=== PATIENT | female | born 1955 | race Two or more races ===

== ENCOUNTER 2019-08-19 16:41 | Emergency (ER) | payer OTHER ==
[~2019-08-19] VITALS: Ht 154.9 cm; Wt 56.2 kg
--- NOTE | 2019-08-19 17:03 | NUR ---
ED Nurse Note: Pt walked into ED for c/o uterine pain for 1 day. Pt has history of diabetes. Pt also has pain chronic in L arm 10/20. VSS.
[2019-08-19 17:07] VITALS: BP 132/60
[2019-08-19 17:25] LABS: APPEARANCE,URINE CLEAR; BILIRUBIN, URINE NEGATIVE (NEGATIVE); COLOR,URINE PALE YELLOW; GLUCOSE, URINE (UA) 4+ (NEGATIVE); KETONES,URINE NEGATIVE (NEGATIVE); LEUKOCYTE ESTERASE ,URINE NEGATIVE (NEGATIVE); NITRITE,URINE NEGATIVE (NEGATIVE); PH,URINE 7 (4.5-8.0); PROTEIN,URINE NEGATIVE (NEGATIVE); UROBILINOGEN,URINE NORMAL MG/DL (0.0-1.0)
[2019-08-19] MEDS ORDERED: Omnipaque-300 100ml vial INJ PRN (17:30)
[2019-08-19] MEDS ORDERED: traMADol 50mg tab ORAL ONE (17:30)
[2019-08-19 18:01] LABS: BASOPHILS % (AUTO) 0.5 % (0.0-2.0); EOSINOPHILS % (AUTO) 0.8 % (0.0-3.0); HEMATOCRIT 42.9 % (37.0-47.0); HEMOGLOBIN 13.2 G/DL (12.0-16.0); LYMPHOCYTES % (AUTO) 23.8 % (20.0-45.0); MEAN CORPUSCULAR VOLUME 91 FL (80-99); MONOCYTES % (AUTO) 6.9 % (1.0-10.0); NEUTROPHILS % (AUTO) 68.1 % (45.0-75.0); PLATELET COUNT 252 K/UL (150-450); RED BLOOD COUNT 4.71 M/UL (4.20-5.40); RED CELL DISTRIBUTION WIDTH 12.7 % (11.6-14.8)
[2019-08-19 18:07] LABS: INR 0.9 (0.9-1.1)
[2019-08-19 18:15] LABS: ANION GAP 13 mmol/L (5-15); BLOOD UREA NITROGEN 15 mg/dL (7-18); CALCIUM 10.2 MG/DL (8.5-10.1); CARBON DIOXIDE 27 MMOL/L (21-32); CHLORIDE 102 MMOL/L (98-107); CREATININE 0.9 MG/DL (0.55-1.30); POTASSIUM 3.7 MMOL/L (3.5-5.1); SODIUM 142 MMOL/L (136-145)
[2019-08-19 18:19] LABS: ALANINE AMINOTRANSFERASE 30 U/L (12-78); ALBUMIN 4.3 G/DL (3.4-5.0); ALKALINE PHOSPHATASE 97 U/L (46-116); ASPARTATE AMINO TRANSFERASE 14 U/L (15-37); BILIRUBIN,TOTAL 0.4 MG/DL (0.2-1.0)
--- NOTE | 2019-08-19 18:31 | NUR ---
ED Nurse Note: Pt taken to CT.
--- NOTE | 2019-08-19 18:41 | Emergency Room Report ---
History of Present Illness General Chief Complaint: Female Urogenital Problems Source: Patient (Helder Amezcua) Present Illness HPI 64-year-old female with history of type 2 diabetes and insulin-dependent here complaining of sudden onset bilateral lower abdominal pain rating it a 10 out of 10 without radiation. Denies any nausea vomiting, vaginal bleeding or spotting. Denies any urinary frequency and urgency. Reports that a few days ago she had diarrhea which was nonbloody however diarrhea has stopped. Denies fever and chills, cough and congestion, shortness of breath, loss of taste and smell. Has not taken medication for symptom relief. Guarding noted when palpating bilateral lower abdominal quadrants. Reports her last colonoscopy was 10 years ago and within normal limits. Reports her last menstruation was 13 years ago. Patient also complains of chronic left shoulder pain which reports that her primary doctor used to write for Motrin for arthritis and possible tendon injury with pending referral to specialist however due to the recent pandemic has not been able to see primary doctor. Denies tingling numbness in the left shoulder. Denies any chest pain chest pain radiation to the shoulder. 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: No (Helder Amezcua) Patient History Past Medical History: see triage record Past Surgical History: none Pertinent Family History: none Last Menstrual Period: 20 years ago Now: No Immunizations: UTD Reviewed Nursing Documentation: PMH: Agreed; PSxH: Agreed (Helder Amezcua) Nursing Documentation-PMH Past Medical History: No History, Except For Hx Diabetes: Yes (Helder Amezcua) Review of Systems All Other Systems: negative except mentioned in HPI (Helder Amezcua) Physical Exam Vital Signs Date Time Temp Pulse Resp B/P (MAP) Pulse Ox O2 Delivery O2 Flow Rate FiO2 08/19/19 16:53 98.8 97 16 134/62 (86) 97 Room Air Sp02 EP Interpretation: reviewed, normal General Appearance: no apparent distress, alert, GCS 15, non-toxic Head: normocephalic, atraumatic Eyes: bilateral eye normal inspection, bilateral eye PERRL ENT: hearing grossly normal, normal pharynx, no angioedema, normal voice Neck: full range of motion, supple/symm/no masses Respiratory: chest non-tender, lungs clear, normal breath sounds, no rhonchi, no respiratory distress, no retraction, speaking full sentences Cardiovascular #1: regular rate, rhythm, no edema, no murmur Cardiovascular #2: 2+ carotid (R), 2+ carotid (L), 2+ radial (R), 2+ radial (L) Gastrointestinal: normal bowel sounds, non tender, soft, non-distended, no guarding, no rebound Rectal: deferred Genitourinary: no CVA tenderness Musculoskeletal: back normal, digits/nails normal, no calf tenderness, other - Pain with range of motion left shoulder especially with extension, possible impingement sign Neurologic: alert, motor strength/tone normal, oriented x3, sensory intact, responsive, speech normal Psychiatric: judgement/insight normal, memory normal, mood/affect normal, no suicidal/homicidal ideation Skin: no rash Lymphatic: no adenopathy (Helder Amezcua) Medical Decision Making PA Attestation All my diagnosis and treatment plans were reviewed ad discussed with my supervising physician Dr. Carrizales (Helder Amezcua) Diagnostic Impression: Primary Impression: Abdominal pain Additional Impressions: Chronic shoulder pain Diverticulitis ER Course 64-year-old female with history of type 2 diabetes and insulin-dependent here complaining of sudden onset bilateral lower abdominal pain rating it a 10 out of 10 without radiation. Denies any nausea vomiting, vaginal bleeding or spotting. Denies any urinary frequency and urgency. Reports that a few days ago she had diarrhea which was nonbloody however diarrhea has stopped. Denies fever and chills, cough and congestion, shortness of breath, loss of taste and smell. Has not taken medication for symptom relief. Guarding noted when palpating bilateral lower abdominal quadrants. Reports her last colonoscopy was 10 years ago and within normal limits. Reports her last menstruation was 13 years ago. Patient also complains of chronic left shoulder pain which reports that her primary doctor used to write for Motrin for arthritis and possible tendon injury with pending referral to specialist however due to the recent pandemic has not been able to see primary doctor. Denies tingling numbness in the left shoulder. Denies any chest pain chest pain radiation to the shoulder. Ddx considered but are not limited to: appendicitis, cholecystis, gastritis, gastroenteritis, UTI, pyelonephritis, SBO, diverticulitis, influenza with GI manifestation, RI, rotator cuff tear, tendinitis, bursitis, arthritis Vital signs: are WNL, pt. is afebrile H&PE are most consistent with: Abdominal pain, chronic shoulder pain ORDERS: abdominal CT, abdominal pain set, EKG, left shoulder x-ray ED INTERVENTIONS: Tramadol, NS bolus, I signed out the patient to Dr. Carrizales at 7PM DISCHARGE: At this time pt. is stable for d/c to home. Will provide printed patient care instructions, and any necessary prescriptions. Care plan and follow up instructions have been discussed with the patient prior to discharge. (Helder Amezcua) ER Course Please for to the initial note for the history exam and presentation at this time we are pending the CAT scan imaging patient's CAT scan does reveal findings consistent with diverticulitis Patient's white blood cell count is minimally elevated Patient is provided with initial doses of antibiotics and hydration with pain control On repeat evaluation at time of dictation patient reports feeling significantly improved She is discussed regarding any increase in fevers or pain That she will require return to the emergency room however at this time it appears that with the lack of any abscess patient can be considered Simple diverticulitis and will have initial conservative outpatient trial Labs Test 08/19/19 17:09 08/19/19 17:36 Urine Color Pale yellow Urine Appearance Clear Urine pH 7 (4.5-8.0) Urine Specific Sunburst 1.010 (1.005-1.035) Urine Protein Negative (NEGATIVE) Urine Glucose (UA) 4+ (NEGATIVE) Urine Ketones Negative (NEGATIVE) Urine Blood Negative (NEGATIVE) Urine Nitrite Negative (NEGATIVE) Urine Bilirubin Negative (NEGATIVE) Urine Urobilinogen Normal MG/DL (0.0-1.0) Urine Leukocyte Esterase Negative (NEGATIVE) White Blood Count 11.0 K/UL (4.8-10.8) Red Blood Count 4.71 M/UL (4.20-5.40) Hemoglobin 13.2 G/DL (12.0-16.0) Hematocrit 42.9 % (37.0-47.0) Mean Corpuscular Volume 91 FL (80-99) Mean Corpuscular Hemoglobin 28.1 PG (27.0-31.0) Mean Corpuscular Hemoglobin Concent 30.8 G/DL (32.0-36.0) Red Cell Distribution Width 12.7 % (11.6-14.8) Platelet Count 252 K/UL (150-450) Mean Platelet Volume 9.1 FL (6.5-10.1) Neutrophils (%) (Auto) 68.1 % (45.0-75.0) Lymphocytes (%) (Auto) 23.8 % (20.0-45.0) Monocytes (%) (Auto) 6.9 % (1.0-10.0) Eosinophils (%) (Auto) 0.8 % (0.0-3.0) Basophils (%) (Auto) 0.5 % (0.0-2.0) Prothrombin Time 10.1 SEC (9.30-11.50) Prothromb Time International Ratio 0.9 (0.9-1.1) Activated Partial Thromboplast Time 27 SEC (23-33) Sodium Level 142 MMOL/L (136-145) Potassium Level 3.7 MMOL/L (3.5-5.1) Chloride Level 102 MMOL/L (98-107) Carbon Dioxide Level 27 MMOL/L (21-32) Anion Gap 13 mmol/L (5-15) Blood Urea Nitrogen 15 mg/dL (7-18) Creatinine 0.9 MG/DL (0.55-1.30) Estimat Glomerular Filtration Rate > 60 mL/min (>60) Glucose Level 173 MG/DL (74-106) Calcium Level 10.2 MG/DL (8.5-10.1) Total Bilirubin 0.4 MG/DL (0.2-1.0) Aspartate Amino Transf (AST/SGOT) 14 U/L (15-37) Alanine Aminotransferase (ALT/SGPT) 30 U/L (12-78) Alkaline Phosphatase 97 U/L (46-116) Troponin I 0.000 ng/mL (0.000-0.056) Total Protein 8.5 G/DL (6.4-8.2) Albumin 4.3 G/DL (3.4-5.0) Globulin 4.2 g/dL Albumin/Globulin Ratio 1.0 (1.0-2.7) Lipase 149 U/L (73-393) (Natalie Carrizales DO) CT/MRI/US Diagnostic Results CT/MRI/US Diagnostic Results : Impression IMPRESSION: 1. Acute diverticulitis at the junction of the descending and proximal sigmoid colon segments. 2. No abscess formation. 3. Short-term follow-up is advised. 4. No evidence of bowel obstruction. 5. Cardiomegaly. 6. ASCVD. 7. Hiatal hernia. 8. Probable distal esophagitis. 9. Fatty infiltration of the liver. 10. No hydronephrosis or renal calculus. (Natalie Carrizales DO) Last Vital Signs Date Time Temp Pulse Resp B/P (MAP) Pulse Ox O2 Delivery O2 Flow Rate FiO2 08/19/19 17:07 98.8 76 19 132/60 99 Room Air (Helder Amezcua) Status: improved (Natalie Carrizales DO) Disposition: HOME, SELF-CARE Condition: Improved Referrals: [facility],REFERR[facility] (PCP) Additional Instructions: Patient is provided with the discharge instructions notified to follow up with primary doctor in the next 2-3 days otherwise return to the er with any worsening symptoms. Please note that this report is being documented using [employer] technology. This can lead to erroneous entry secondary to incorrect interpretation by the dictating instrument. Helder Amezcua Aug 19, 2019 18:41 Natalie Carrizales DO Aug 19, 2019 20:14
--- NOTE | 2019-08-19 19:03 | Diagnostic Imaging Report ---
EXAM: CT Abdomen and Pelvis With Intravenous Contrast CLINICAL HISTORY: Abdominal pain. TECHNIQUE: Axial computed tomography images of the abdomen and pelvis with intravenous contrast. CTDI is 5.4 mGy and DLP is 266.4 mGy-cm. One or more of the following dose reduction techniques were used: automated exposure control, adjustment of the mA and/or kV according to patient size, use of iterative reconstruction technique. COMPARISON: None. FINDINGS: Lung bases: Minimal subsegmental atelectasis posteriorly at the lung bases. Minimal subsegmental atelectasis within the lingular region. Heart: Mild cardiomegaly. Mediastinum: Small to moderate hiatal hernia. Probable distal esophagitis. ABDOMEN: Liver: Mild fatty infiltration of the liver. The liver and the spleen enhance uniformly. Gallbladder and bile ducts: The gallbladder is unremarkable. No calcified stones. No ductal dilation. Pancreas: See below. Spleen: See above. Adrenals: The adrenal glands, the head, body, tail of the pancreas are unremarkable. Kidneys and ureters: Both kidneys are shown to excrete contrast bilaterally. 0.5 cm probable simple cyst midpole region of the right kidney which requires no further workup. No hydronephrosis. Stomach and bowel: Presumed ingested material in the stomach. Moderate quantity of stool throughout the colon. There is extensive inflammatory change at the junction of the descending and proximal sigmoid colon compatible with acute diverticulitis without abscess formation. No obstruction. PELVIS: Appendix: The appendix is well seen on series 8 image 26 and is unremarkable. Bladder: The bladder is mildly distended. Reproductive: The uterus is unremarkable. ABDOMEN and PELVIS: Intraperitoneal space: Unremarkable. No free air. No significant fluid collection. Bones/joints: Mild to moderate degenerative disc disease of the spinal column. Moderate osteoarthritic changes about the sacroiliac joints. Alignment of the visualized track the lumbar spine is unremarkable. Sacrum and coccyx are unremarkable. No acute fracture. Soft tissues: Ischiorectal fat is clean. Vasculature: Atherosclerotic disease of the abdominal aorta without change in caliber. Flow is demonstrated within the celiac, SMA, the renal arteries, and the ELINOR. Atherosclerotic disease of the origin of these vessels is also noted. No abdominal aortic aneurysm. Lymph nodes: No pelvic or inguinal lymphadenopathy. Other findings: ASCVD. Elevation of the right hemidiaphragm. An underlying lesion cannot be excluded and short-term follow-up is advised. IMPRESSION: 1. Acute diverticulitis at the junction of the descending and proximal sigmoid colon segments. 2. No abscess formation. 3. Short-term follow-up is advised. 4. No evidence of bowel obstruction. 5. Cardiomegaly. 6. ASCVD. 7. Hiatal hernia. 8. Probable distal esophagitis. 9. Fatty infiltration of the liver. 10. No hydronephrosis or renal calculus.
--- NOTE | 2019-08-19 19:11 | NUR ---
Note feli in ED - 08/19/19 at 1913 by KATHARINE ER DISCHARGE NOTE: Patient is cleared to be discharged per ERMD, pt is aox4, on room air, with stable vital signs. pt was given dc and prescription instructions, pt was able to verbalize understanding, pt id band removed. pt is able to ambulate with steady gait. pt took all belongings. Pt educated regarding knee effusion.
[2019-08-19 19:15] VITALS: BP 146/60
[2019-08-19] MEDS ORDERED: Levofloxacin 500mg tab ORAL ONE (19:15)
[2019-08-19] MEDS ORDERED: Morphine Sulfate 4mg/ml Inj (IV USE ONLY) IVP ONE (19:15)
[2019-08-19] MEDS ORDERED: NORCO 5-325 TA1 EAC1 ORAL (20:16)
[2019-08-19] MEDS ORDERED: LEVAQUIN500 MG ORAL (20:16)
[2019-08-19] MEDS ORDERED: METRONIDAZOLE500 MG ORAL (20:16)
[2019-08-19] MEDS ORDERED: COLACE100 MG ORAL (20:16)
--- NOTE | 2019-08-19 20:28 | NUR ---
ER DISCHARGE NOTE: Patient is cleared to be discharged per ERMD, pt is aox4, on room air, with stable vital signs. pt was given dc and prescription instructions, pt was able to verbalize understanding, pt id band and iv site removed without complications. pt is able to ambulate with steady gait. pt took all belongings.
[2019-08-19 20:29] VITALS: BP 146/60
--- NOTE | 2019-08-20 13:05 | Diagnostic Imaging Report ---
Indication: Left shoulder pain Technique: 3 views of the left shoulder Comparison: none Findings: No acute fractures. No dislocations. Joint spaces are preserved Impression: Negative
== END 2019-08-19 20:30 | disposition home or self-care (01) ==
LOC: EMR 17:31
DX: R10.30 Lower abdominal pain, unspecified (principal); M25.512 Pain in left shoulder; G89.29 Other chronic pain; E11.9 Type 2 diabetes mellitus without complications; K57.92 Diverticulitis of intestine, part unspecified, without perforation or abscess without bleeding; Z79.4 Long term (current) use of insulin; I51.7 Cardiomegaly; I25.10 Atherosclerotic heart disease of native coronary artery without angina pectoris; K44.9 Diaphragmatic hernia without obstruction or gangrene; K76.0 Fatty (change of) liver, not elsewhere classified
CPT/HCPCS: 36415; 73030; 74177; 80053; 81003; 83690; 84484; 85025; 85610; 85730; 93005; 96361; 96365; 96375; J2270; J2405; J7030; J7040; Q9967; Z7502; 99284